=== PATIENT | male | born 1980 ===

== ENCOUNTER 2021-03-20 23:24 | Emergency (ER) | payer OTHER ==
[2021-03-20] MEDS ORDERED: Ketamine 500 mg/10 ML MDV ONE (23:27)
[2021-03-20] MEDS ORDERED: Propofol 200 MG/20 ML SDV ONE (23:27)
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
--- NOTE | 2021-03-20 23:58 | PCM.PREANE ---
Preanesthetic Assessment - Anesthesia/Transfusion/Family Hx Anesthesia History: Prior Anesthesia Without Reaction Family History of Anesthesia Reaction: No - Review of Systems General: No Symptoms Pulmonary: No Symptoms Cardiovascular: No Symptoms Gastrointestinal: No Symptoms Neurological: No Symptoms Other: Reports: None - Physical Assessment NPO Status Date: 03/20/21 NPO Status Time: 12:00 Vital Signs: Last Vital Signs Temp 99.1 F 03/20/21 23:53 Pulse 90 03/20/21 23:53 Resp 20 03/20/21 23:53 BP 135/79 03/20/21 23:53 Pulse Ox 100 03/20/21 23:53 Height: 5 ft 10 in Weight: 185 lb ASA Class: 2E Mental Status: Alert & Oriented x3 Airway Class: Mallampati = 2 Dentition: Reports: Normal Dentition ROM/Head Extension: Full Lungs: Clear to Auscultation, Normal Respiratory Effort Cardiovascular: Regular Rate, Regular Rhythm - Allergies Allergies/Adverse Reactions: Allergies Allergy/AdvReac Type Severity Reaction Status Date / Time No Known Allergies Allergy Verified 03/20/21 23:33 - Acknowledgements Anesthesia Type Planned: MAC Pt an Appropriate Candidate for the Planned Anesthesia: Yes Alternatives and Risks of Anesthesia Discussed w Pt/Guardian: Yes Pt/Guardian Understands and Agrees with Anesthesia Plan: Yes PreAnesthesia Questionnaire - SUBSTANCE USE Tobacco Use Status *Q: Never Tobacco User Recreational Drug Use History: No - HOME MEDS Home Medications: Home Meds Acetaminophen/oxyCODONE [Percocet 325-5 MG] 1 each PO Q6H PRN #14 tab 03/20/21 [ Rx]
--- NOTE | 2021-03-21 00:01 | PCM.SN.2 ---
- Free Text/Narrative Note: Asked to provide sedation in 41 yo WM s/p fracture/dislocation right ankle Standard monitoring and oxygen applied. VSS IV sedation with 25mg ketamine and 100mg propofol Patient awake and oriented 3 minutes after reduction of ankle VSS No complications. Federico Rm MD 03/20/2921
--- NOTE | 2021-03-21 00:02 | PCM.POSTAN ---
POST ANESTHESIA ASSESSMENT - MENTAL STATUS Mental Status: Alert, Oriented - VITAL SIGNS Vital Signs: Last Vital Signs Temp 99.1 F 03/20/21 23:53 Pulse 87 03/20/21 23:57 Resp 15 03/20/21 23:57 BP 138/76 03/20/21 23:57 Pulse Ox 96 03/20/21 23:57 - RESPIRATORY Respiratory Status: Respiratory Rate WNL, Airway Patent, O2 Saturation Stable - CARDIOVASCULAR CV Status: Pulse Rate WNL, Blood Pressure Stable - GASTROINTESTINAL GI Status: No Symptoms - POST OP HYDRATION Hydration Status: Adequate & Stable
--- NOTE | 2021-03-21 00:03 | PCM48HPAN ---
Post Anesthesia Note - EVALUATION WITHIN 48HRS OF ANESTHETIC Vital Signs in Normal Range: Yes Patient Participated in Evaluation: Yes Respiratory Function Stable: Yes Airway Patent: Yes Cardiovascular Function Stable: Yes Hydration Status Stable: Yes Pain Control Satisfactory: Yes Nausea and Vomiting Control Satisfactory: Yes Mental Status Recovered: Yes Vital Signs: Last Vital Signs Temp 99.1 F 03/20/21 23:53 Pulse 87 03/20/21 23:57 Resp 15 03/20/21 23:57 BP 138/76 03/20/21 23:57 Pulse Ox 96 03/20/21 23:57
--- NOTE | 2021-03-21 00:18 | CR ---
INDICATION: Ankle fracture dislocation status post reduction TECHNIQUE: Tibia-fibula radiograph 4 views right COMPARISON: 03/20/2021 FINDINGS: Bone: Segmental, comminuted fracture of the distal fibula is noted and reduced into near anatomic alignment with only mild 7 mm displacement. The medial malleolar fracture remains displaced by 8 mm laterally. Joint: The ankle joint has been reduced to anatomic alignment. No significant joint effusion is seen. Soft tissue: An overlying posterior splint is noted which limits evaluation of the underlying osseous structures and soft tissues. No radiopaque foreign bodies are seen. IMPRESSIONS: 1. Segmental, comminuted fracture of the distal fibula is noted and reduced into near anatomic alignment with only mild 7 mm displacement. 2. The medial malleolar fracture remains displaced by 8 mm laterally. 3. The ankle joint has been reduced to anatomic alignment. Dictated by Wang Hager MD @ 03/21/2021 12:16:15 AM Dictated by: Wang Hager MD @ 03/21/2021 00:16:19 (Electronically Signed)
[2021-03-21] MEDS ORDERED: Acetaminophen/HYDROcodone 325-10 MG Tab PO ONE (00:50)
== END 2021-03-21 01:22 | disposition home or self-care (01) ==
LOC: MW.ED 23:24
DX: S82.831A Other fracture of upper and lower end of right fibula, initial encounter for closed fracture (principal); S82.391A Other fracture of lower end of right tibia, initial encounter for closed fracture; F17.200 Nicotine dependence, unspecified, uncomplicated; W18.39XA Other fall on same level, initial encounter
CPT/HCPCS: 27840; 73590; 99283; A9270; 01462